=== PATIENT | male | born 1960 | race Caucasian/White ===

== ENCOUNTER 2021-06-20 10:20 | Emergency (ER) | payer SELFPAY ==
[~2021-06-20] VITALS: Ht 182.9 cm; Wt 113.4 kg
[2021-06-20] MEDS ORDERED: ACETAMINOPHEN/CODEINE 300MG - 30MG TAB PO ONE (11:00)
[2021-06-20 11:20] LABS: BASOPHILS # (AUTO) 0.1 (0.0-0.1); BASOPHILS % 1.8 % (0.0-1.0); EOSINOPHILS # (AUTO) 0.2 (0.0-0.4); EOSINOPHILS % 4.6 % (0.0-6.0); HEMATOCRIT 43.5 % (38.2-49.6); LYMPHOCYTES # (AUTO) 0.7 (1.0-3.2); LYMPHOCYTES % 22.7 % (18.0-39.1); MEAN CORPUSCULAR HEMOGLOBIN 34.9 pg (28-32); MEAN CORPUSCULAR HGB CONC 34.5 g/dL (31-35); MEAN CORPUSCULAR VOLUME 101.2 fL (81-99); MONOCYTES # (AUTO) 0.4 (0.2-0.8); MONOCYTES % 11.7 % (4.4-11.3); NEUTROPHILS # (AUTO) 1.9 (2.1-6.9); NEUTROPHILS % 58.9 % (38.7-80.0); PLATELET COUNT 118 x10e3/uL (140-360); RED CELL DISTRIBUTION WIDTH 14.4 % (11.7-14.4)
[2021-06-20 11:31] LABS: INR 1.18; PARTIAL THROMBOPLASTIN TIME 33.1 seconds (23.8-35.5)
[2021-06-20 11:39] LABS: ALBUMIN 3.5 g/dL (3.5-5.0); ALBUMIN/GLOBULIN RATIO 0.8 (0.8-2.0); ANION GAP 11.8 mmol/L (8-16); CALCIUM 8.7 mg/dL (8.4-10.2); CREATININE, SERUM 0.78 mg/dL (0.72-1.25); POTASSIUM 3.8 mmol/L (3.5-5.1)
[2021-06-20] MEDS ORDERED: KEFLEX125 MG/5 M PO (13:04)
[2021-06-20] MEDS ORDERED: ACETAMINOPHEN-1 EAC4 PO (13:04)
[2021-06-20] MEDS ORDERED: BACTRIM DS TAB1 EACH PO (13:04)
== END 2021-06-20 13:33 | disposition home or self-care (01) ==
LOC: ER 10:30
DX: L03.116 Cellulitis of left lower limb (principal); Z86.718 Personal history of other venous thrombosis and embolism; F17.210 Nicotine dependence, cigarettes, uncomplicated
CPT/HCPCS: 36415; 80053; 85025; 85610; 85730; 93925; 93970; 99284